=== PATIENT | male | born 1945 | race Caucasian/White ===

== ENCOUNTER 2017-10-14 06:11 | Day surgery (SDC) | payer OTHER, MEDICARE ==
--- NOTE | 2017-09-25 13:35 | HP ---
DATE OF ADMISSION: 10/14/2017 DATE OF DICTATION: 09/08/2017 REASON FOR ADMISSION: Bilateral inguinal hernias. BRIEF HISTORY: This is a 72-year-old gentleman who thinks his history dates back to April 2017, when he first noted a lump in the left groin region. Prior to that event, the patient states he has had some burning in the left side and then subsequently noted a lump. There are times when the lump is out and fairly painful, and there are times when the lump is out and causes him no discomfort. He has had no bouts of sharp pain. No nausea. No vomiting. He also complains of having some burning sensation similar to the feeling that he has on the left groin prior to April. He denies having a lump in the right groin. He has had no nausea, no vomiting. Has that side. PAST MEDICAL HISTORY: Significant for a laparoscopic cholecystectomy over 15-20 years ago. He has a history of hypertension, arthritis. PAST SURGICAL HISTORY: As mentioned above, a laparoscopic cholecystectomy approximately 15-20 years ago, and he has undergone a subtotal thyroidectomy sometime in May of last year. ALLERGIES: None. MEDICATIONS: Patient takes a blood pressure pill and a thyroid medicine. He did not mention or write down the exact types of pills he is taking. SOCIAL HISTORY: He does not smoke. He drinks socially. PHYSICAL EXAMINATION: HEENT: Unremarkable. Abdomen: Soft, nontender, nondistended. He has well-healed laparoscopic cholecystectomy scars. He has a [id number]-sized right inguinal hernia, reducible in the supine position. The right scrotum and testicle is within normal limits. On the left side, he has a large left inguinal hernia with encroachment into the proximal left scrotum. Reduction was with some difficulty but manageable. The left scrotum and testicle within normal limits. IMPRESSION/PLAN: Bilateral inguinal hernias. This is a 72-year-old gentleman with bilateral inguinal hernias noted on physical examination. Patient is clearly symptomatic on the left side from the hernia. With regard to the right side, the burning sensation may be secondary to the hernia or may be related to other causes. At this point, there is no way to determine the exact etiology of that weird burning sensation in the right groin. Patient, his , and myself had a long conversation (approximately 1 hour), discussing the various surgical approaches, robotics versus laparoscopic versus open, and the various types of meshes and placement. The patient will be scheduled for a laparoscopic bilateral inguinal hernia repair with mesh, possible open left. The indications, alternatives, and complications have been discussed at length. Given the generosity and size on the left side, the patient is more likely to develop a postoperative seroma which may or may not resolve, which was clearly explained to him and his . With regard to the other parts of the physical examination, patient will undergo a medical clearance by his primary care physician, Dr. Patel. Leanne VELASQUEZ [id number] cc: Yakov Patel MD, [facility], phone number is [phone]
[2017-10-13 09:31] VITALS: BMI 23.0
[2017-10-14] MEDS ORDERED: TAMSULOSIN HCL 0.4 MG CAP.ER.24H (FP) ONE (06:31)
[2017-10-14] MEDS ORDERED: ceFAZolin SODIUM 1 GM VIAL ONE (06:32)
[2017-10-14] MEDS ORDERED: PROPOFOL 20 ML ONE ×2 (07:56)
[2017-10-14] MEDS ORDERED: ROCURONIUM BROMIDE 50 MG/5 ML VIAL ONE (07:56)
[2017-10-14] MEDS ORDERED: SUCCINYLCHOLINE CHLORIDE 200 MG/10 ML VIAL ONE (07:56)
[2017-10-14] MEDS ORDERED: ceFAZolin SODIUM 1 GM VIAL IVPB ONE (08:10)
[2017-10-14] MEDS ORDERED: LIDOCAINE HCL 2% JELLY (5 ML/TUBE) ONE (08:42)
[2017-10-14] MEDS ORDERED: LIDOCAINE HCL/PF 2% SDV 5ML VIAL ONE (08:42)
[2017-10-14] MEDS ORDERED: DEXAMETHASONE SOD PHOSPHATE 4 MG/1 ML VIAL ONE ×2 (08:42→08:44)
[2017-10-14] MEDS ORDERED: ONDANSETRON 4 MG/2 ML VIAL ONE (08:42)
[2017-10-14] MEDS ORDERED: NEOSTIGMINE METHYLSULFATE 0.5 MG/ML - 10 ML MDV ONE (08:45)
[2017-10-14] MEDS ORDERED: ONDANSETRON 4 MG/2 ML VIAL IVPUSH PRN (09:20)
[2017-10-14] MEDS ORDERED: oxyCODONE HCL 5 MG TABLET PO PRN (09:20)
[2017-10-14] MEDS ORDERED: PROMETHAZINE HCL 25 MG/1 ML VIAL IVPUSH PRN (09:20)
[2017-10-14] MEDS ORDERED: LACTATED RINGERS SOLUTION 1,000 ML IV SCH (09:30)
--- NOTE | 2017-10-14 10:44 | OP ---
DATE OF OPERATION: 10/14/2017 PREOPERATIVE DIAGNOSIS: Bilateral inguinal hernias. POSTOPERATIVE DIAGNOSIS: Left indirect inguinal hernia, right indirect inguinal hernia. PROCEDURE: Bilateral inguinal herniorrhaphy with mesh. SURGEON: Nick Avelar MD DIRECTOR OF SCIENTIFIC RESEARCH: Raphael Dillard MD ANESTHESIA: Marisa Morrison MD (general). ESTIMATED BLOOD LOSS: Minimal. SPECIMEN: None. INDICATIONS/PROCEDURE: This is a 72-year-old gentleman becoming markedly symptomatic from an enlarging left inguinal hernia. Patient wishes to have this repaired. Patient was identified and appropriately positioned on the operating room table. After placement of general anesthesia, the abdomen was prepped and draped in the usual sterile fashion with ChloraPrep. An infraumbilical incision was made deep into the subcutaneous tissues. The fascia of the rectus muscle on the left was identified, divided sharply. The muscles subsequently split. Under direct vision, a dissector balloon followed by structural balloon placed. Also, under direct vision, a suprapubic 11-mm port placed. The following structures on the left side identified, pubic tubercle, Coopers ligament, inferior epigastric vessels, spermatic cord, and lateral abdominal wall. During this dissection, patient is noted to have no direct component. He had a markedly attenuated and blown-out inguinal floor lateral to the internal ring. He had a large indirect inguinal hernia with a moderate sized lipoma, both reduced into the preperitoneal space with blunt dissection. A 4.5 x 6 piece of Versatex mesh was keyholed and placed through the suprapubic port site. The mesh wrapped around the cord structures laterally to reconstruct the internal ring. Laterally, the mesh anchored into the anterior abdominal wall and lateral abdominal wall. Medially, the mesh anchored into the anterior abdominal wall, pubic tubercle, and Coopers ligament. Upon completion of the left side, similar structures on the right side identified. On the right side, again, there was no direct component. He had a smaller indirect inguinal hernia sac, which was reduced back into the preperitoneal space. Another 4.5 x 6 piece of Versatex mesh was keyholed and placed through the suprapubic port site. The mesh wrapped around the cord structures laterally to reconstruct the internal ring. Laterally, the mesh anchored to the anterior abdominal wall and lateral abdominal wall. Medially, the mesh anchored to the anterior abdominal wall, pubic tubercle, and Coopers ligament. There was good overlap in the midline. All anterior abdominal wall and lateral abdominal wall anchors placed under direct application. The anchoring system used was the Covidien ReliaTack. The fascia at both port sites were reapproximated with interrupted 0 Vicryl suture. All skin closed with 4-0 subcuticular Biosyn followed by Dermabond. At the conclusion of the case, sponge counts were correct. ATTESTATION: Brief operative note handwritten on the preprinted form. [facility] will be queried prior to giving any narcotics and will be done electronically. Leanne VELASQUEZ [id number] cc: Yakov Patel MD
[2017-10-14] MEDS ORDERED: oxyCODONE HCL 5 MG TABLET ONE (11:45)
[2017-10-14 13:29] VITALS: TEMP 97.8
[2017-10-14 14:58] VITALS: PULSE 90
[2017-10-14 15:10] VITALS: BP 120/70
== END 2017-10-14 15:10 | disposition home or self-care (01) ==
LOC: JASU-SURG 06:11
PROVIDERS: ATTEND Surgery
PROC: 0YUA0JZ Supplement Bilateral Inguinal Region with Synthetic Substitute, Open Approach (ICD-10-PCS; principal; 2017-10-14 08:00)
DX: K40.20 Bilateral inguinal hernia, without obstruction or gangrene, not specified as recurrent (principal)
CPT/HCPCS: 94760

== ENCOUNTER 2021-03-13 04:57 | Day surgery (SDC) | payer OTHER, MEDICARE ==
[2021-03-12 12:34] VITALS: BMI 24.9
[2021-03-13] MEDS ORDERED: KETAMINE HCL 200 MG/20 ML VIAL ONE (07:47)
[2021-03-13 08:37] VITALS: TEMP 98
[2021-03-13 16:11] VITALS: BP 116/51; PULSE 58
== END 2021-03-13 09:25 | disposition home or self-care (01) ==
LOC: JASU-SURG 04:57
PROVIDERS: ATTEND Internal Medicine Gastroenterology
PROC: 0DJD8ZZ Inspection of Lower Intestinal Tract, Via Natural or Artificial Opening Endoscopic (ICD-10-PCS; principal; 2021-03-13 08:00)
DX: Z12.11 Encounter for screening for malignant neoplasm of colon (principal); K57.30 Diverticulosis of large intestine without perforation or abscess without bleeding; K64.8 Other hemorrhoids; Z86.010 Personal history of colon polyps